=== PATIENT | male | born 1970 | race Caucasian/White ===

== ENCOUNTER 2020-01-17 07:33 | Emergency (ER) | payer BC, OTHER ==
[~2020-01-17] VITALS: Ht 185.4 cm; Wt 135.9 kg
--- NOTE | 2020-01-17 08:06 | NUR ---
coban applied to the site of bleeding with pressure dressing ,pt walked around the hallway ,no bleeding or oozing noted to the site of dressing ,notified dr white.primary nurse aware.
[2020-01-17 08:20] VITALS: BP 140/98
== END 2020-01-17 08:23 | disposition home or self-care (01) ==
LOC: ER 07:34
DX: I83.891 Varicose veins of right lower extremity with other complications (principal); Z72.89 Other problems related to lifestyle
CPT/HCPCS: 99282